=== PATIENT | female | born 2000 | race Caucasian/White ===

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

== ENCOUNTER 2022-01-21 14:45 | Emergency (ER) | payer OTHER ==
[~2022-01-21 14:45] MED LIST changes: +PEPCID40 MG PO
[2022-01-21 15:59] LABS: HEMOGLOBIN 13.2 gm/dl (12.3-15.3); RED BLOOD COUNT 4.92 M/UL (4.00-5.10); WHITE BLOOD COUNT 13.3 K/UL (4.5-11.0)
[2022-01-21 16:31] LABS: BUN/CREATININE RATIO 17 (0-10)
[2022-01-21] MEDS ORDERED: ONDANSETRON ODT4 MG PO (17:02)
[2022-01-25] MEDS ORDERED: ACETAMINOPHEN500 M1 PO (09:13)
[2022-01-25] MEDS ORDERED: ALEVE220 MG PO (09:13)
[2022-01-25] MEDS ORDERED: BENTYL 20MG TAB20 MG PO (09:15)
[2022-01-25] MEDS ORDERED: PEPCID40 MG PO (09:15)
[2022-01-25] MEDS ORDERED: PROTONIX 40 MG40 M1 PO (12:37)
== END 2022-01-21 17:24 | disposition home or self-care (01) ==
LOC: ER1 14:45
PROVIDERS: Nurse Practitioner
DX: R10.9 Unspecified abdominal pain (principal); R10.811 Right upper quadrant abdominal tenderness
CPT/HCPCS: 80053; 82150; 82962; 83690; 84702; 85025; 96374; 99284; J1885

== ENCOUNTER → 2022-01-25 | Day surgery (SDC) | payer OTHER ==
[~2022-01-25] MED LIST changes: +ACETAMINOPHEN500 M1 PO; +ALEVE220 MG PO; +BENTYL 20MG TAB20 MG PO; +ONDANSETRON ODT4 MG PO; +PROTONIX 40 MG40 M1 PO
== END | disposition home or self-care (01) ==
LOC: OR 08:37
DX: K31.9 Disease of stomach and duodenum, unspecified (principal); R11.2 Nausea with vomiting, unspecified; R10.10 Upper abdominal pain, unspecified; K25.9 Gastric ulcer, unspecified as acute or chronic, without hemorrhage or perforation; E66.01 Morbid (severe) obesity due to excess calories; Z88.6 Allergy status to analgesic agent; Z91.041 Radiographic dye allergy status; Z68.41 Body mass index [BMI] 40.0-44.9, adult; Z20.822 Contact with and (suspected) exposure to COVID-19
CPT/HCPCS: 84703; J2704; J7030

== ENCOUNTER 2022-03-13 15:19 | Emergency (ER) | payer OTHER ==
[2022-03-13] MEDS ORDERED: LIDOCAINE1 EAC1 TP (19:37)
== END 2022-03-13 19:40 | disposition home or self-care (01) ==
LOC: ER1 15:19
DX: S39.012A Strain of muscle, fascia and tendon of lower back, initial encounter (principal); K21.9 Gastro-esophageal reflux disease without esophagitis; Z88.6 Allergy status to analgesic agent; Z91.041 Radiographic dye allergy status; V49.40XA Driver injured in collision with unspecified motor vehicles in traffic accident, initial encounter; Y92.410 Unspecified street and highway as the place of occurrence of the external cause
CPT/HCPCS: 72131; 72192; 84703; 99284

== ENCOUNTER 2022-04-06 17:32 | Emergency (ER) | payer OTHER ==
[~2022-04-06 17:32] MED LIST changes: +LIDOCAINE1 EAC1 TP
[2022-04-06 17:58] LABS: HEMOGLOBIN 12.9 gm/dl (12.3-15.3); RED BLOOD COUNT 4.82 M/UL (4.00-5.10); WHITE BLOOD COUNT 12.4 K/UL (4.5-11.0)
[2022-04-06 18:21] LABS: BUN/CREATININE RATIO 18 (0-10)
== END 2022-04-07 01:30 | disposition home or self-care (01) ==
LOC: ER1 17:32
PROVIDERS: Physician Assistant
DX: R10.13 Epigastric pain (principal); R11.2 Nausea with vomiting, unspecified; R10.816 Epigastric abdominal tenderness; Z94.9 Transplanted organ and tissue status, unspecified; Z90.89 Acquired absence of other organs
CPT/HCPCS: 80053; 83690; 85025; 99283

== ENCOUNTER → 2022-06-08 | Outpatient (CLI) | payer OTHER ==
[2022-06-08 15:24] LABS: HEMOGLOBIN 12.3 gm/dl (12.3-15.3); RED BLOOD COUNT 4.74 M/UL (4.00-5.10)
[2022-06-08 17:29] LABS: BUN/CREATININE RATIO 24 (0-10)
[2022-06-09 15:12] LABS: ENDOMYSIAL ANTIBODY IGA Negative (Negative); IMMUNOGLOBULIN A, QN, SERUM 107 mg/dL (87-352); T-TRANSGLUTAMINASE (TTG) IGA <2 U/mL (0-3)
== END ==
LOC: LAB 14:35
PROVIDERS: Pediatrics
DX: R10.11 Right upper quadrant pain (principal)
CPT/HCPCS: 36415; 80053; 82150; 82784; 83690; 85025